=== PATIENT | male | born 1955 | race Caucasian/White ===

== ENCOUNTER 2016-08-22 08:15 | Observation (INO) | payer OTHER ==
--- NOTE | ~2016-08-22 | HP ---
History And Physical [place] [id number] [facility] [place]. [address] NAME: CESAR GARY : 51 STATUS : ADM Lucille PAT#: [id number] AGE: 60 ADM/REG DATE : 08/22/16 MR#: [id number] REPORT SERV DATE: 08/22/16 DICTATED BY: JESSICA VARGAS DATE: 08/22/16 REPORT STATUS : Draft TRANSCRIBED BY: MODL DATE: 08/22/16 DATE OF ADMISSION: 08/22/2016 CHIEF COMPLAINT: Episodic chest pain x6 weeks with recently identified left renal mass. HISTORY OF PRESENT ILLNESS: A very pleasant 60-year-old white gentleman with no known history of CAD, who reports six weeks of episodic chest pain that is described as a chest pressure over the last two days as if "something sitting on my chest." The patient has undergone considerable workup through [facility], and his PCP in outpatient imaging for reports of chest pain and epigastric chest discomfort. He has seen his PCP at least twice. The patient was sent to [facility] for lab and EKG, and discharged home. He recently saw his PCP, at which time, an ultrasound of the gallbladder and upper GI were ordered, and a mass was found on his ultrasound of the gallbladder with a followup CT of his abdomen. All performed at the [facility]. The patient was scheduled for surgery today , with a Dr. Orneals in [place] at [facility] to remove the left renal mass, but the patient had ongoing chest discomfort and felt it more prudent to undergo stress testing, which unfortunately has been scheduled after the surgery. Now, the patient felt it prudent to move the stress test prior to any further general anesthesia or surgery. The patient indicates chest pain and some upper abdominal discomfort with belching. The chest pain does not radiate elsewhere. He indicates the middle of his chest. He reports associated nausea and belching. Denies shortness of breath, diaphoresis, or dizziness. At its most intense, the chest pain is rated a 4/10. At the time of interview in the ER, he is pain free. The application of Nitro paste seemingly helped his symptoms. He also states his symptoms are improved when he is supine. There is no clear pattern or exertional component to his chest pain. The patient was laying or hanging dry wall yesterday carrying heavy objects and nailing sub floor dry wall up without any incident. The patient denies any personal history of myocardial infarction, stroke, DVT, or pulmonary embolus. He has never undergone stress testing. The patient denies any recent fever or chills, no palpitations, no syncopal episodes. Denies PND or orthopnea. Of note, after cancelling the surgery this morning, the patient went to [facility], and ate steak, eggs, hash browns, and coffee, and also took his metoprolol tartrate 100 mg this morning around 0500 hours. PAST MEDICAL HISTORY: 1. Hypertension. 2. Dyslipidemia. 3. Denies diabetes. 4. Gout. 5. Positive family history for early CAD. 6. Former tobacco use. 7. Recently identified left renal mass. PAST SURGICAL HISTORY: A tonsillectomy and appendectomy. History And Physical [address] [address] NAME: CESAR GARY : 51 STATUS : ADM Lucille PAT#: [id number] AGE: 60 ADM/REG DATE : 08/22/16 MR#: [id number] REPORT SERV DATE: 08/22/16 DICTATED BY: JESSICA VARGAS DATE: 08/22/16 REPORT STATUS : Draft TRANSCRIBED BY: ANGY DATE: 08/22/16 SOCIAL HISTORY: He is with two children. He is a retired transportation maintenance worker. Does not have a structured exercise routine, although he is active. Quit smoking two months ago. Prior to that was a half pack per day for 40 plus years. Denies alcohol, but consumes an occasional beer. FAMILY HISTORY: Mother with a heart attack at 68, remains alive at 85. REVIEW OF SYSTEMS: A 14-point review of systems was performed, significant for HPI. No other contributory diagnoses identified. ALLERGIES: NO KNOWN DRUG ALLERGIES. HOME MEDICATIONS: Metoprolol tartrate 100 mg nightly, pravastatin 20 mg daily, hydrochlorothiazide 25 mg daily, losartan 50 mg daily, aspirin 81 mg daily, fish oil 1 tablet twice daily, and allopurinol 300 mg daily as needed p.r.n. PHYSICAL EXAMINATION: BLOOD PRESSURE: 151/68, PULSE: 49, RESPIRATORY RATE: 16, TEMPERATURE: 97.7, O2 saturation 98% on room air. HEIGHT: 6 feet 1 inch. WEIGHT: 205 pounds stated. GENERAL: Cooperative, in no apparent distress. HEENT: Pupils 2 mm, sclera nonicteric. Nares patent. Moist mucous membranes. No xanthelasma. NECK: Trachea midline, no thyromegaly. No JVD. No bruits. LYMPH: No cervical lymphadenopathy. No supraclavicular lymphadenopathy. RESPIRATORY: Unlabored respirations. Breath sounds clear bilaterally to posterior auscultation. No wheezes or rhonchi. CARDIOVASCULAR: Regular rate. No murmur, rub or gallop appreciated. EXTREMITIES: Without edema. Pulses 2+ bilaterally. ABDOMEN: Soft, nontender, nondistended, normal bowel sounds auscultated throughout. No organomegaly. SKIN: Warm, dry extremities. No pallor, or cyanosis. PSYCHIATRIC: Appropriate affect. Alert, oriented x3. LABORATORY DATA: Troponin is less than 0.02, second and third pending. Potassium 3.6, BUN 17, creatinine 1.38, glucose 126, and magnesium 2.2. WBC of 7.2, hemoglobin 15.4, hematocrit 43.8, and platelet count 183,000. EKG: Sinus bradycardia. ASSESSMENT AND PLAN: 1. Chest pain in a patient with multiple risk factors. The patient will be observed in the CPOU to rule out myocardial infarction with serial enzymes and serial EKGs and held n.p.o. if all troponins negative and EKG stable for MPI in the morning. The patient will be discharged home if low risk, no ischemia. If anything suggestive of ischemia, Cardiology referral will be initiated. Otherwise, the patient will be asked to follow up with the PCP in one to two weeks with all studies being sent to that office. 2. Hypertension. Monitor blood pressure. Hold beta-darell, continue other History And Physical [address] [address] NAME: CESAR GARY : 51 STATUS : ADM Lucille PAT#: [id number] AGE: 60 ADM/REG DATE : 08/22/16 MR#: [id number] REPORT SERV DATE: 08/22/16 DICTATED BY: JESSICA VARGAS DATE: 08/22/16 REPORT STATUS : Draft TRANSCRIBED BY: ANGY DATE: 08/22/16 antihypertensive medications. 3. Dyslipidemia. Continue statin. 4. Quit smoking x2 months. I congratulated on quitting smoking and encouraged to remain smoke/tobacco free. 5. Left renal mass, surgery cancelled for today 08/22/2016. We will perform MPI on 08/23/2016. The patient to reschedule surgery through his PCP and/or Dr. Ornelas's office, given the findings of this continued workup. RISHI/ANGY ANAND Chow, FULL STACK JAVA DEVELOPER-BC / [id number] CC: ANAND Chow, FULL STACK JAVA DEVELOPER-BC Ashly Cooper
--- NOTE | ~2016-08-22 | CN ---
Consultation Report [address] [place]. [address] NAME: ECSAR GARY : 51 STATUS : DIS Lucille PAT#: [id number] AGE: 60 ADM/REG DATE : 08/22/16 MR#: [id number] REPORT SERV DATE: 08/23/16 DICTATED BY: Angel SNEED DATE: 08/23/16 REPORT STATUS : Draft TRANSCRIBED BY: MODL DATE: 08/23/16 CONSULTATION NOTE DATE OF CONSULTATION: 08/23/2016 CHIEF COMPLAINT: Left renal mass. HISTORY OF PRESENT ILLNESS: Mr. Gary is a 60-year-old white male, admitted on 08/22/2016 with chest pain, found to have a coronary lesion and underwent bare metal stent placement yesterday. He was scheduled yesterday for an open partial nephrectomy in [place] by Dr. Carlos Guaman what he describes as a small left renal mass. He is now desirous to change considering surgical therapy in [place]. He denies any particular history. He has had some prostate issues but very nonspecific. He has not had gross hematuria, and his mass was found in workup for chest pain by ultrasound. He also had a CT. PAST MEDICAL HISTORY: 1. Hypertension. 2. Dyslipidemia. 3. Gout. 4. CAD. 5. Previous tobacco use. 6. Left renal mass. PAST SURGICAL HISTORY: 1. Tonsillectomy. 2. Appendectomy. 3. Bare metal cardiac stent placement 08/22/2016. SOCIAL HISTORY: The patient stopped smoking two months ago. He has been half pack-a-day smoker for 40 years. He has an occasional beer. He is , lives at home with his . FAMILY HISTORY: Negative for urologic disease. REVIEW OF SYSTEMS: A full 12-point review is performed, significance only as noted above. ALLERGIES: NO KNOWN DRUG ALLERGIES. CURRENT MEDICATIONS: Allopurinol 300 mg daily, daily aspirin, hydrochlorothiazide 25 mg daily, Losartan 50 mg daily, metoprolol 100 mg daily, Pravachol 20 mg daily, fish oil daily, and Plavix has been added to his medication regimen 75 mg daily. PHYSICAL EXAMINATION: Consultation Report [place] [id number] [place]. [address] NAME: CESAR GARY : 51 STATUS : DIS Lucille PAT#: [id number] AGE: 60 ADM/REG DATE : 08/22/16 MR#: [id number] REPORT SERV DATE: 08/23/16 DICTATED BY: Angel SNEED DATE: 08/23/16 REPORT STATUS : Draft TRANSCRIBED BY: ANGY DATE: 08/23/16 VITAL SIGNS: Alert 60-year-old white male, afebrile with normal vital signs. GENERAL: Conversant. HEENT: Normocephalic atraumatic. CHEST: No respiratory distress. HEART: Regular rate and rhythm. ABDOMEN: Nontender, nondistended. No CVA tenderness noted. No suprapubic distention. EXTREMITIES: No lower extremity edema. The patient is ambulatory. IMPRESSION: 1. Coronary artery disease status post bare metal stent placement 08/22/2016. 2. A small left renal mass. PLAN: 1. We will ask the market survey representative to have [facility] push the ultrasound and CT images to the PAC system. 2. We will ask Dr. Ochoa when it is okay for the patient be off his aspirin and Plavix for an open laparoscopic or robotic partial nephrectomy. The nurse seems to think that it will be okay in about 30 days. 3. Follow up with me in one to two weeks and we will arrange and continue evaluation, make arrangements for his procedure. HUGH/ANGY Angel Sneed M.D. / [id number] CC: MD Ashly Castro
--- NOTE | ~2016-08-22 | DS ---
Discharge Summary [facility] [address] [place]. [address] NAME: CESAR GARY : 51 STATUS : DIS Lucille PAT#: [id number] AGE: 60 ADM/REG DATE : 08/22/16 MR#: [id number] REPORT SERV DATE: 08/24/16 DICTATED BY: RAGHAV JOE DATE: 08/23/16 REPORT STATUS : Draft TRANSCRIBED BY: ANGY DATE: 08/23/16 ADMISSION DATE: 08/22/2016 DISCHARGE DATE: 08/23/2016 DISCHARGE DIAGNOSES: 1. Coronary artery disease, status post bare-metal stent, on aspirin and Plavix. 2. Hypertension. 3. Renal cell carcinoma. 4. Hyperlipidemia. 5. History of gout. 6. Chronic kidney disease, stage III. DISCHARGE MEDICATIONS: Include: 1. Aspirin 81 mg p.o. daily. 2. Hydrochlorothiazide 25 mg p.o. daily. 3. Cozaar 50 mg p.o. daily. 4. Allopurinol 300 mg p.o. daily p.r.n. 5. Atorvastatin 40 mg p.o. daily. 6. Toprol-XL 100 mg p.o. daily. 7. Plavix 75 mg p.o. daily for 30 days, then discontinue. HISTORY AND PHYSICAL: Per initial assessment. DISCHARGE VITALS: Temperature 97.8, heart rate 58, blood pressure 126/61, respiratory rate 17, O2 saturation 99 on room air. DISCHARGE LABS: WBC of 5.4, hemoglobin 15.3, hematocrit 42.5, platelets 155. Sodium 142, potassium 3.5, chloride 101, bicarb 27, BUN 21, creatinine 1.45, glucose 107. IMAGING: Chest x-ray, impression: Negative. HOSPITAL COURSE: This is a 60-year-old man with history of hypertension and hyperlipidemia, came into the ED, admitted initially by Cardiology Service for chest pain. The patient had a stress test, which was abnormal. The patient then had a catheterization done status post PCI, more details per cath report, had a bare-metal stent. The patient was placed on aspirin and Plavix. Cardiology placed the patient on beta darell and statin as well. Instructions were to continue aspirin and Plavix as directed. Aspirin will be needed for 30 days and then can be stopped. The patient does have history of renal cell carcinoma, which he did not want to return to Urology at [place] for nephrectomy. The patient was supposed to get a nephrectomy done on 08/22/2016, but due to chest pain, surgery was postponed. We had Urology come to see the patient during the hospitalization. The patient will follow up with Dr. Mcpherson in one week for further evaluation and management. The patient will be instructed to follow up with primary care physician in one week, recheck blood pressure, heart rate, and renal function. The patient instructed to take all medications as directed above by Cardiology. Follow up with Cardiology as directed. Further management as an outpatient. On the day of discharge, the patient was stable and wanted to go home. [address] [address] [address] NAME: CESAR GARY : 51 STATUS : DIS Lucille PAT#: [id number] AGE: 60 ADM/REG DATE : 08/22/16 MR#: [id number] REPORT SERV DATE: 08/24/16 DICTATED BY: RAGHAV JOE DATE: 08/23/16 REPORT STATUS : Draft TRANSCRIBED BY: ANGY DATE: 08/23/16 Total time for discharge planning 35 minutes. SONAL/ANGY Tiburcio Sylvester MD / [id number] CC: MD Ashly Castro
[2016-08-22] MEDS ORDERED: LOP100 PO (08:19)
[2016-08-22] MEDS ORDERED: PRAVAC PO (08:20)
[2016-08-22] MEDS ORDERED: COZ50 PO (08:20)
[2016-08-22] MEDS ORDERED: HYDROCHLOROT25 MG PO (08:20)
[2016-08-22] MEDS ORDERED: FISH OIL PO (08:21)
[2016-08-22] MEDS ORDERED: ASAB PO (08:21)
[2016-08-22 08:31] LABS: BASOPHILS 0.1 %; BASOPHILS ABSOLUTE 0.01 10/3/uL (0.0-0.16); EOSINOPHILS 3.3 %; EOSINOPHILS ABSOLUTE 0.24 10/3/uL (0.0-0.53); HEMATOCRIT 43.8 % (40.0-51.0); HEMOGLOBIN 15.4 g/dL (13.6-17.8); IMMATURE GRANULOCYTES 0.1 %; IMMATURE GRANULOCYTES ABSOLUTE 0.01 10/3/uL (0.0-0.11); LYMPHOCYTES 18.2 %; LYMPHOCYTES ABSOLUTE 1.32 10/3/uL (0.67-4.30); MANUAL DIFF NO %; MEAN CORPUS HGB CONC 35.2 g/dL (32.0-36.0); MEAN CORPUSCULAR HEMOGLOB 30.4 pg (26.0-34.0); MEAN CORPUSCULAR VOLUME 86.4 fL (80-100); MONOCYTES 6.2 %; MONOCYTES ABSOLUTE 0.45 10/3/uL (0.21-1.20); NEUTROPHILS 72.1 %; NEUTROPHILS ABSOLUTE 5.21 10/3/uL (2.02-8.40); PLATELET COUNT 183 10/3/uL (150-400); RBC DISTRIBUTION WIDTH 12.3 % (12.0-16.0); RED CELL COUNT 5.07 10/6/uL (4.7-6.1); WHITE BLOOD CELLS 7.2 10/3/uL (4.5-10.5)
[2016-08-22 08:37] LABS: INTERNATIONAL NORMAL RATI 1.1 UNITS (-)
[2016-08-22 08:38] LABS: PARTIAL THROMBO TIME 30.6 SEC (22.5-37.2)
[2016-08-22 08:49] LABS: ALBUMIN 3.7 G/DL (3.5-5.0); ALKALINE PHOSPHATASE 93 U/L (45-117); BUN (BLOOD UREA NITROGEN) 17 MG/DL (6-23); CALCIUM, SERUM 9.1 MG/DL (8.5-10.4); CHEST PAIN PROFILE TAT 0 Hrs 22 Mins; CHLORIDE, SERUM 101 MMOL/L (96-112); CO2 (CARBON DIOXIDE) 30 MMOL/L (24-34); CREATININE 1.38 MG/DL (0.70-1.30); DIRECT BILIRUBIN 0.1 MG/DL (0.0-0.4); GFR AFRICAN AMERICAN 63 ML/MIN (>=60); GFR NON AFRICAN AMERICAN 54 ML/MIN (>=60); GLUCOSE, SERUM 126 MG/DL (60-99); INDIRECT BILIRUBIN(NOT ORDER) 0.6 MG/DL (0.1-0.9); POTASSIUM, SERUM 3.6 MMOL/L (3.5-5.3); SGOT(AST) 23 U/L (5-40); SGPT(ALT) 39 U/L (5-65); SODIUM, SERUM 140 MMOL/L (135-148); TOTAL BILIRUBIN 0.7 MG/DL (0-1.2); TOTAL PROTEIN 7.5 G/DL (6.0-8.5); TROPONIN I <0.02 NG/ML (<0.05)
[2016-08-22] MEDS ORDERED: Z300 PO (09:26)
[2016-08-23 11:01] LABS: BASOPHILS 0.2 %; BASOPHILS ABSOLUTE 0.01 10/3/uL (0.0-0.16); EOSINOPHILS 3.9 %; EOSINOPHILS ABSOLUTE 0.21 10/3/uL (0.0-0.53); HEMATOCRIT 42.5 % (40.0-51.0); HEMOGLOBIN 15.3 g/dL (13.6-17.8); LYMPHOCYTES ABSOLUTE 1.52 10/3/uL (0.67-4.30); MEAN CORPUSCULAR HEMOGLOB 30.7 pg (26.0-34.0); MEAN CORPUSCULAR VOLUME 85.2 fL (80-100); MEAN PLATELET VOLUME 10.5 fL (9.2-13.0); MONOCYTES 8.1 %; MONOCYTES ABSOLUTE 0.44 10/3/uL (0.21-1.20); NEUTROPHILS 59.8 %; NEUTROPHILS ABSOLUTE 3.25 10/3/uL (2.02-8.40); PLATELET COUNT 155 10/3/uL (150-400); RBC DISTRIBUTION WIDTH 12.6 % (12.0-16.0); RED CELL COUNT 4.99 10/6/uL (4.7-6.1); WHITE BLOOD CELLS 5.4 10/3/uL (4.5-10.5)
[2016-08-23 11:04] LABS: MANUAL DIFF NO %
[2016-08-23 11:06] LABS: INTERNATIONAL NORMAL RATI 1.1 UNITS (-); PROTIME (NOT ORD) 14.2 SEC (12.0-14.5)
[2016-08-23 11:15] LABS: BUN (BLOOD UREA NITROGEN) 21 MG/DL (6-23); CALCIUM, SERUM 8.8 MG/DL (8.5-10.4); CHLORIDE, SERUM 101 MMOL/L (96-112); CHOL/HDL RATIO(NOT ORDER) 3.7 (0-5); CHOLESTEROL 179 MG/DL (< 200); CO2 (CARBON DIOXIDE) 27 MMOL/L (24-34); CREATININE 1.45 MG/DL (0.70-1.30); GFR AFRICAN AMERICAN 59 ML/MIN (>=60); GFR NON AFRICAN AMERICAN 51 ML/MIN (>=60); GLUCOSE, SERUM 107 MG/DL (60-99); HDL CHOLESTEROL 48 MG/DL (> 39); LDL CHOLESTEROL 99 MG/DL (< 130); NON-HDL CHOLESTEROL 131 MG/DL (< 160); POTASSIUM, SERUM 3.5 MMOL/L (3.5-5.3); SODIUM, SERUM 142 MMOL/L (135-148); TRIGLYCERIDE 160 MG/DL (< 150)
[2016-08-23] MEDS ORDERED: PLAVIX PO (17:14)
[2016-08-23] MEDS ORDERED: LIPITOR40 PO (17:14)
[2016-08-23] MEDS ORDERED: TOPXL100 PO (17:15)
[2016-08-23 17:16] LABS: HEMOGLOBIN 13.4 g/dL (13.6-17.8)
[2016-08-23 17:17] LABS: HEMATOCRIT 38.1 % (40.0-51.0)
[2016-08-23 17:26] LABS: BUN (BLOOD UREA NITROGEN) 20 MG/DL (6-23); CALCIUM, SERUM 7.9 MG/DL (8.5-10.4); CHLORIDE, SERUM 106 MMOL/L (96-112); CHOL/HDL RATIO(NOT ORDER) 3.5 (0-5); CHOLESTEROL 140 MG/DL (< 200); CO2 (CARBON DIOXIDE) 27 MMOL/L (24-34); CREATININE 1.22 MG/DL (0.70-1.30); GFR AFRICAN AMERICAN 73 ML/MIN (>=60); GFR NON AFRICAN AMERICAN 63 ML/MIN (>=60); GLUCOSE, SERUM 103 MG/DL (60-99); HDL CHOLESTEROL 40 MG/DL (> 39); LDL CHOLESTEROL 48 MG/DL (< 130); NON-HDL CHOLESTEROL 100 MG/DL (< 160); POTASSIUM, SERUM 3.3 MMOL/L (3.5-5.3); SODIUM, SERUM 144 MMOL/L (135-148); TRIGLYCERIDE 260 MG/DL (< 150)
== END 2016-08-23 20:20 | disposition home or self-care (01) ==
LOC: ER 08:15 → CDU1 11:03 → CDU2 11:11 → SSU1 08-23 12:43
PROVIDERS: Clinical Nurse Specialist; Emergency Medicine; Internal Medicine Cardiovascular Disease
DX: R07.9 Chest pain, unspecified (principal); I25.10 Atherosclerotic heart disease of native coronary artery without angina pectoris; I12.9 Hypertensive chronic kidney disease with stage 1 through stage 4 chronic kidney disease, or unspecified chronic kidney disease; N18.3 Chronic kidney disease, stage 3 (moderate); E78.5 Hyperlipidemia, unspecified; M10.9 Gout, unspecified; C64.9 Malignant neoplasm of unspecified kidney, except renal pelvis; Z90.49 Acquired absence of other specified parts of digestive tract; Z87.891 Personal history of nicotine dependence; Z90.89 Acquired absence of other organs; Z79.82 Long term (current) use of aspirin; Z79.899 Other long term (current) drug therapy
CPT/HCPCS: 71010; 78452; 80048; 80061; 80076; 83690; 83735; 84484; 85014; 85018; 85025; 85347; 85610; 85730; 92928; 93005; 93017; 93458; 99152; 99153; 99285; A9270-GY; A9502; C1725; C1769; C1876; C1887; C1894; G0378; J1200; J2250; J3010; Q9967

== ENCOUNTER 2016-09-10 12:35 | Emergency (ER) | payer OTHER ==
[~2016-09-10 12:35] MED LIST: ASAB PO; COZ50 PO; FISH OIL PO; HYDROCHLOROT25 MG PO; LIPITOR40 PO; LOP100 PO; PLAVIX PO; PRAVAC PO; TOPXL100 PO; Z300 PO
[2016-09-10 13:51] LABS: BASOPHILS 0.5 %; BASOPHILS ABSOLUTE 0.04 10/3/uL (0.0-0.16); EOSINOPHILS 5.8 %; EOSINOPHILS ABSOLUTE 0.51 10/3/uL (0.0-0.53); IMMATURE GRANULOCYTES 0.2 %; IMMATURE GRANULOCYTES ABSOLUTE 0.02 10/3/uL (0.0-0.11); LYMPHOCYTES 31.2 %; LYMPHOCYTES ABSOLUTE 2.75 10/3/uL (0.67-4.30); MEAN CORPUS HGB CONC 35.6 g/dL (32.0-36.0); MEAN CORPUSCULAR HEMOGLOB 31.1 pg (26.0-34.0); MEAN CORPUSCULAR VOLUME 87.4 fL (80-100); MEAN PLATELET VOLUME 11.3 fL (9.2-13.0); MONOCYTES 5.7 %; NEUTROPHILS 56.6 %; PLATELET COUNT 180 10/3/uL (150-400); RBC DISTRIBUTION WIDTH 12.5 % (12.0-16.0); RED CELL COUNT 5.15 10/6/uL (4.7-6.1)
[2016-09-10 13:52] LABS: ER CBC TAT 0 Hrs 11 Mins; WHITE BLOOD CELLS 8.8 10/3/uL (4.5-10.5)
[2016-09-10 13:53] LABS: MANUAL DIFF NO %
[2016-09-10 13:59] LABS: INTERNATIONAL NORMAL RATI 1.1 UNITS (-); PROTIME (NOT ORD) 13.9 SEC (12.0-14.5)
[2016-09-10 14:07] LABS: BUN (BLOOD UREA NITROGEN) 22 MG/DL (6-23); CHEST PAIN PROFILE TAT 0 Hrs 26 Mins; CHLORIDE, SERUM 103 MMOL/L (96-112); CREATININE 1.35 MG/DL (0.70-1.30); GFR AFRICAN AMERICAN 65 ML/MIN (>=60); GFR NON AFRICAN AMERICAN 56 ML/MIN (>=60); GLUCOSE, SERUM 85 MG/DL (60-99); POTASSIUM, SERUM 3.7 MMOL/L (3.5-5.3); SODIUM, SERUM 142 MMOL/L (135-148); TROPONIN I <0.02 NG/ML (<0.05)
[2016-09-10 14:08] LABS: CO2 (CARBON DIOXIDE) 32 MMOL/L (24-34)
== END 2016-09-10 16:03 | disposition home or self-care (01) ==
LOC: ER 12:35
PROVIDERS: Emergency Medicine
DX: R07.9 Chest pain, unspecified (principal); G89.18 Other acute postprocedural pain; C64.9 Malignant neoplasm of unspecified kidney, except renal pelvis; I12.9 Hypertensive chronic kidney disease with stage 1 through stage 4 chronic kidney disease, or unspecified chronic kidney disease; N18.9 Chronic kidney disease, unspecified; Z95.5 Presence of coronary angioplasty implant and graft; Z79.82 Long term (current) use of aspirin; Z79.899 Other long term (current) drug therapy
CPT/HCPCS: 71010; 80048; 83735; 84484; 85025; 85610; 85730; 93005; 99285

== ENCOUNTER 2016-11-04 05:33 | Inpatient (IN) | payer OTHER ==
[2016-11-01 17:47] LABS: HEMATOCRIT 41.7 % (40.0-51.0); HEMOGLOBIN 14.4 g/dL (13.6-17.8)
[2016-11-01 17:56] LABS: BUN (BLOOD UREA NITROGEN) 25 MG/DL (6-23); CALCIUM, SERUM 9.3 MG/DL (8.5-10.4); CHLORIDE, SERUM 106 MMOL/L (96-112); CO2 (CARBON DIOXIDE) 29 MMOL/L (24-34); CREATININE 1.41 MG/DL (0.70-1.30); GFR AFRICAN AMERICAN 61 ML/MIN (>=60); GFR NON AFRICAN AMERICAN 53 ML/MIN (>=60); GLUCOSE, SERUM 92 MG/DL (60-99); POTASSIUM, SERUM 3.9 MMOL/L (3.5-5.3); SODIUM, SERUM 142 MMOL/L (135-148)
[2016-11-01 18:09] LABS: ASCORBIC ACID (UR NOT ORDER) NEG (NEG); BILIRUBIN, URINE NEGATIVE (NEG); KETONE, URINE NEGATIVE (NEG); LEUKOCYTE ESTERASE(NOT OR NEG (NEG); WBC (NOT ORDERED) (RFLEX) < 1 (0-5)
--- NOTE | ~2016-11-04 | OP ---
Record Of Operation [facility] [address] [place]. [address] NAME: CESAR GARY : 51 STATUS : ADM IN PAT#: [id number] AGE: 60 ADM/REG DATE : 11/04/16 MR#: [id number] REPORT SERV DATE: 11/04/16 DICTATED BY: KEELY KAY DATE: 11/04/16 REPORT STATUS : Draft TRANSCRIBED BY: MODL DATE: 11/04/16 DATE OF PROCEDURE: 11/04/2016 SURGEON: Keely Kay M.D. TITLE OF OPERATION: 1. Left robotic-assisted laparoscopic partial nephrectomy. 2. Intraoperative ultrasound of left kidney with image documentation. PREOPERATIVE DIAGNOSIS: Left renal mass. POSTOPERATIVE DIAGNOSIS: Left renal mass. INDICATIONS: Mr. Gary is a 60-year-old male, with an enhancing T1a left renal mass. He is counseled regarding his options including surveillance, ablation, and partial nephrectomy. He is here for partial nephrectomy. ANESTHESIA: General. COMPLICATIONS: None. IMPLANTS: A 16-Cuban Fisher catheter, #10 round MARKUS drain. SPECIMEN: Kidney tumor. NARRATIVE: The patient was brought to the operating room, identified by his wristband. General anesthesia was induced and Ancef was given for preoperative antibiotics. He was placed in modified left flank position and secured to the bed with pads and tape. He was prepped and draped in sterile fashion. The abdomen was insufflated to pressure of 15 mmHg using a Veress needle. An 8 mm port was placed in the left upper quadrant. The abdomen was inspected. There were some omental adhesions over the left flank. Standard X-Y port placement was performed with four 8 mm ports in the midclavicular line on the left side of the body. A 12 mm port was placed in the supraumbilical position for an high school assistant principal port. The patient was rotated, the robot was docked. I began the operation by lysing the omental adhesions sharply. There was no bowel involved. The colon was then dropped along the white line of Toldt exposing the retroperitoneum. This was reflected inferiorly to expose the gonadal vein, ureter, and aorta. The splenorenal ligaments were sharply divided. The pancreas was lysed off the superior pole of the kidney. Care was taken not to injure the pancreas. Then entered the retroperitoneum beneath the gonadal vein and ureter. All fibrofatty tissue surrounding the hilum was sharply divided. There was solitary renal vein and artery. The artery was superior to the vein. It was dissected circumferentially. The kidney was then dropped back to its orthotopic position. The perinephric fat was incised. The tumor was identified. Ultrasound was performed on the kidney. The margins of the tumor were marked precisely. Image documentation was performed and placed into the chart. The artery was then clamped. The kidney tumor was resected. Some normal tissue was left on the kidney tumor to ensure negative margin. The kidney tumor was then placed into an EndoCatch Record Of Operation [address] [address] NAME: CESAR GARY : 51 STATUS : ADM IN [facility]#: [id number] AGE: 60 ADM/REG DATE : 11/04/16 MR#: [id number] REPORT SERV DATE: 11/04/16 DICTATED BY: KEELY AKY DATE: 11/04/16 REPORT STATUS : Draft TRANSCRIBED BY: ANGY DATE: 11/04/16 bag. The base of the tumor defect was sewn with two running 3-0 V-Loc sutures. Early unclamping technique was performed. There was some mild cortical bleeding. The capsulotomy was closed with an interrupted 2-0 Vicryl suture using a sliding Weck technique. At the end of this there was no ongoing bleeding. A Surgifoam dressing was placed over the hilum and over the renal defect. The perinephric fat was reapproximated with a 3-0 V-Loc suture. A total ischemia time was 11 minute. Estimated blood loss was 50 mL. The robot was undocked. The robotic ports were removed. A #10 round MARKUS drain was placed through the most inferior robotic port. It was sutured in place with a 2-0 Prolene suture. The supraumbilical incision was enlarged to the skin and fascia levels. The bulldogs and tumor were removed in an EndoCatch bag. The fascia was closed with interrupted 0 Monocryl suture in a figure-of- eight fashion. The wounds were irrigated clear. Skin was closed with 4-0 Monocryl suture in a subcuticular fashion. Dermabond dressing was placed. A TAP block was placed preoperatively. The patient was awoken from anesthesia and transferred to recovery in stable condition. There were no complications. BETZAIDA/SABIHAL Keely Kay MD / [id number] CC: Keely Kay MD
[2016-11-04 10:58] LABS: BASOPHILS 0 %; EOSINOPHILS 0.9 %; EOSINOPHILS ABSOLUTE 0.06 10/3/uL (0.0-0.53); HEMATOCRIT 38.9 % (40.0-51.0); HEMOGLOBIN 13.9 g/dL (13.6-17.8); IMMATURE GRANULOCYTES 0.2 %; IMMATURE GRANULOCYTES ABSOLUTE 0.01 10/3/uL (0.0-0.11); LYMPHOCYTES 9.3 %; LYMPHOCYTES ABSOLUTE 0.61 10/3/uL (0.67-4.30); MEAN CORPUS HGB CONC 35.7 g/dL (32.0-36.0); MEAN CORPUSCULAR VOLUME 86.8 fL (80-100); MEAN PLATELET VOLUME 10.5 fL (9.2-13.0); MONOCYTES 1.2 %; MONOCYTES ABSOLUTE 0.08 10/3/uL (0.21-1.20); NEUTROPHILS 88.4 %; NEUTROPHILS ABSOLUTE 5.79 10/3/uL (2.02-8.40); RBC DISTRIBUTION WIDTH 12.1 % (12.0-16.0); RED CELL COUNT 4.48 10/6/uL (4.7-6.1); WHITE BLOOD CELLS 6.6 10/3/uL (4.5-10.5)
[2016-11-04 11:01] LABS: MANUAL DIFF NO %; PLATELET COUNT 114 10/3/uL (150-400)
[2016-11-04 11:18] LABS: BUN (BLOOD UREA NITROGEN) 25 MG/DL (6-23); CALCIUM, SERUM 8.4 MG/DL (8.5-10.4); CHLORIDE, SERUM 105 MMOL/L (96-112); CO2 (CARBON DIOXIDE) 28 MMOL/L (24-34); CREATININE 1.48 MG/DL (0.70-1.30); GFR AFRICAN AMERICAN 58 ML/MIN (>=60); GFR NON AFRICAN AMERICAN 50 ML/MIN (>=60); SODIUM, SERUM 140 MMOL/L (135-148)
[2016-11-04 11:19] LABS: GLUCOSE, SERUM 111 MG/DL (60-99)
[2016-11-05 06:06] LABS: BASOPHILS 0 %; EOSINOPHILS 0 %; HEMOGLOBIN 13.2 g/dL (13.6-17.8); IMMATURE GRANULOCYTES 0.2 %; IMMATURE GRANULOCYTES ABSOLUTE 0.02 10/3/uL (0.0-0.11); LYMPHOCYTES 9.3 %; LYMPHOCYTES ABSOLUTE 0.95 10/3/uL (0.67-4.30); MEAN CORPUS HGB CONC 35.7 g/dL (32.0-36.0); MEAN CORPUSCULAR HEMOGLOB 30.4 pg (26.0-34.0); MEAN CORPUSCULAR VOLUME 85.3 fL (80-100); MEAN PLATELET VOLUME 10.9 fL (9.2-13.0); MONOCYTES 8.5 %; MONOCYTES ABSOLUTE 0.86 10/3/uL (0.21-1.20); NEUTROPHILS ABSOLUTE 8.34 10/3/uL (2.02-8.40); PLATELET COUNT 124 10/3/uL (150-400); RBC DISTRIBUTION WIDTH 12.4 % (12.0-16.0); RED CELL COUNT 4.34 10/6/uL (4.7-6.1)
[2016-11-05 06:08] LABS: MANUAL DIFF NO %; WHITE BLOOD CELLS 10.2 10/3/uL (4.5-10.5)
[2016-11-05 06:27] LABS: BUN (BLOOD UREA NITROGEN) 21 MG/DL (6-23); CALCIUM, SERUM 8.4 MG/DL (8.5-10.4); CHLORIDE, SERUM 107 MMOL/L (96-112); CO2 (CARBON DIOXIDE) 26 MMOL/L (24-34); CREATININE 1.43 MG/DL (0.70-1.30); GFR AFRICAN AMERICAN 60 ML/MIN (>=60); GFR NON AFRICAN AMERICAN 52 ML/MIN (>=60); GLUCOSE, SERUM 140 MG/DL (60-99); POTASSIUM, SERUM 3.9 MMOL/L (3.5-5.3); SODIUM, SERUM 141 MMOL/L (135-148)
[2016-11-05] MEDS ORDERED: PCET PO (19:19)
[2016-11-05] MEDS ORDERED: DSS PO (19:20)
== END 2016-11-05 20:43 | disposition home or self-care (01) | DRG 658 ==
LOC: SDC/OF 05:33 → PACU 10:29 → 4SO 13:36
PROVIDERS: Urology
PROC: 8E0W4CZ Robotic Assisted Procedure of Trunk Region, Percutaneous Endoscopic Approach (ICD-10-PCS; 2016-11-04)
PROC: BT42ZZZ Ultrasonography of Left Kidney (ICD-10-PCS; 2016-11-04)
PROC: 0TB14ZZ Excision of Left Kidney, Percutaneous Endoscopic Approach (ICD-10-PCS; principal; 2016-11-04 06:30)
DX: D41.02 Neoplasm of uncertain behavior of left kidney (principal); I10 Essential (primary) hypertension; I25.10 Atherosclerotic heart disease of native coronary artery without angina pectoris; Z95.5 Presence of coronary angioplasty implant and graft; Z79.02 Long term (current) use of antithrombotics/antiplatelets; R00.1 Bradycardia, unspecified; Z87.891 Personal history of nicotine dependence; N40.0 Benign prostatic hyperplasia without lower urinary tract symptoms; E78.5 Hyperlipidemia, unspecified; Z79.82 Long term (current) use of aspirin
CPT/HCPCS: 36415; 80048; 81001; 82570; 83735; 85014; 85018; 85025; 86850; 86900; 86901; 88307; 93005; A9270-GY; J0690; J2250; J2370; J2405; J2710; J2795; J3010